=== PATIENT | female | born 2000 | race Caucasian/White ===

== ENCOUNTER 2019-05-13 12:48 | Outpatient (CLI) | payer BC, SELFPAY ==
--- NOTE | ~2019-05-13 | US_ITS ---
EXAMINATION: US pelvic complete w TV EXAM DATE: 05/13/2019 13:21 INDICATION: Pelvic and perineal pain. TECHNIQUE: Pelvic transabdominal and transvaginal sonogram was performed. There are multiple graysca le and Doppler images available for interpretation. There is no prior study for comparison. FINDINGS: Uterus measures 6.3 x 3.3 x 3.8 cm, and is morphologically normal. Endometrial stripe melissa sures 9 mm, within normal limits. There is trace fluid in the cervical canal. There is no free pelvic fluid. Right adnexa: The ovary measures 4.0 x 1.9 x 1.7 cm and is morphologically normal. Ovarian vascular f low confirmed. Left adnexa: The ovary measures 3.4 x 2.0 x 2.1 cm and is morphologically normal. Ovarian vascular fl ow confirmed. IMPRESSION: 1. Unremarkable pelvic ultrasound exam. Reviewed, dictated and finalized at location B. [employer]
== END 2019-05-13 12:49 | disposition home or self-care (01) ==
PROVIDERS: PCP Family Medicine; Visit Provider Student in an Organized Health Care Education/Training Program
DX: R10.2 Pelvic and perineal pain (principal)
CPT/HCPCS: 76830; 76856